=== PATIENT | female | born 1995 | race African-American/Black ===

== ENCOUNTER 2018-08-19 20:24 | Emergency (ER) | payer SELFPAY ==
--- NOTE | 2018-08-19 21:39 | ULT ---
PELVIC ULTRASOUND: 08/19/18 HISTORY: Abdominal pain, rule out ectopic. Real time imaging of the pelvis shows a single viable intrauterine . heart rate is 171 beats per minute. The crown to rump length measurements are 1.4 cm corresponding to 7 weeks, 5 days. No subchorionic bleed is seen. The right and left ovaries are normal in size and appearance. DOPPLER EVALUATION WITH SPECTRAL ANALYSIS: Normal flow is shown to both ovaries. IMPRESSION: Single viable intrauterine . [place] to rump length measurements corresponding to a gestationa l age of 7 weeks, 6 days. Estimated date of delivery 04/01/19. POS: [facility]
== END 2018-08-19 21:50 | disposition home or self-care (01) ==
LOC: ERS 20:24
DX: O99.281 Endocrine, nutritional and metabolic diseases complicating pregnancy, first trimester (principal); O21.9 Vomiting of pregnancy, unspecified; E05.90 Thyrotoxicosis, unspecified without thyrotoxic crisis or storm; O99.89 Other specified diseases and conditions complicating pregnancy, childbirth and the puerperium; Z3A.01 Less than 8 weeks gestation of pregnancy
CPT/HCPCS: 76856

== ENCOUNTER 2019-03-04 03:25 | Day surgery (SDC) | payer OTHER ==
[2019-03-04] MEDS ORDERED: Ondansetron ODT 8 MG TAB ONE (05:38)
--- NOTE | 2019-03-04 07:16 | PDOC.FPROB ---
Addendum entered and electronically signed by Ceci Tapia MD 03/04/19 16:33 : Patient's mother called saying [facility] did not approve zofran but they had already left town. [facility] electronic rx to [facility]. Addendum entered and electronically signed by Ceci Tapia MD 03/04/19 16:29 : Course of care: Patient received 4L of fluids, FHT showed improvement in baseline two 150s, mod variability, accels. Patient with improved urine output light to clear in color. AVSS. Able to tolerate PO liquids and some food. Had U/S performed since patient was scheduled for this on Tuesday and lives out of town. US showed ZACH 9.5cm, live IUP, cephalic. Will send rx for zofran to [facility] since [facility] will not accept [facility]. Advised to follow up with Dr. Soto this week. Original Note: [facility] OB H&P: A/P - Problem List (1) Status: Acute Discussion: Date/Time: 03/04/19715 PCP: Charles HPI: This is a 23 yo at 36.5 wks presenting for intractable N/V. She states the onset was sudden last night, she thinks she vomited 15 times. Denies blood in vomit. States she has a nephew that lives with her that had the same symptoms one day ago. Denies fevers. Patient had abdominal pain when she first came in but that is now improved after receiving 4mg of Zofran and 1L NS in the ED. Patient states she has not been able to eat or drink anything in the ED. She affirms movement, denies cxns, ROM, bleeding/discharge. Denies visual changes, SOB, or swelling. History: OB hx: G1, denies any complications PMH: neg PSH: neg Meds: PNV All: NKDA Soc Hx: denies smoking, alcohol, drugs Fam Hx: denies downs, congenital defects REVIEW OF SYSTEMS: Gen: no fever, chills, or sweats Neuro: no numbness/tingling, no weakness, + mild headache ENT: denies congestion Eyes: no visual changes Resp: no cough, no SOB, no wheeze Card: denies chest pain, no palpitations GI: see hpi : no dysuria, no hematuria Skin: no rash, no erythema Vitals: T: 98.3 R: 18 BP: 98/57 P:80 Sat: 98% on RA Wt: 95kg PHYSICAL EXAMINATION: General: NAD, alert and oriented x3 HEENT: EOMI, normal sclera Neck: Supple. Full ROM. Heart/Cardiovascular System: RRR, Cap refill < 3 seconds, no rub, no murmur Lungs/Respiratory System: clear to auscultation bilaterally. No increased work of breathing. Room air. Abdomen/Gastro-Intestinal System: no abdominal tenderness, normal bowel sounds, Gravid Extremities: Warm extremities. No cyanosis or edema. Neuro: No gross deficits appreciated Psychiatry: Awake, Alert and cooperative with exam Skin: No lesions, rashes Musculoskeletal: Full ROM A/P: This is a 23 yo at 36.5 wks presenting for intractable N/V FHT: baseline 170, good variability, accels present, no decels [place]: no cxns # Intractable N/V - had only received 500ml fluids at time of exam in ED, ordered 2L total - Vital signs stable - ordered cbc, cmp - will have patient transferred to L&D triage for monitoring of tachycardia # tachycardia - baseline 170 - suspect this is 2/2 maternal viral infection, dehydration - will continue rehydration and monitor - consider admission if mother is unable to tolerate PO intake Addendum - Attending - Attending Attestation Date/Time: 03/05/19 [id number] I personally evaluated the patient and discussed the management with Dr. Lamb I agree with the History, Examination, Assessment and Plan documented above with any addition or exceptions noted below. vital signs reviewed and normal. Pt vomiting resolved and pt hydrated after 4L iv fluid.
[2019-03-04 07:23] LABS: #Lymphocytes 0.2 thou/uL (1.20-3.40); #Monocytes 0.2 thou/uL (0.11-0.59); #Neutrophils 7.1 thou/uL (1.40-6.50); %Eosinophils 0.2 % (0.0-10.0); %Lymphocytes 2.3 % (21.0-51.0); %Monocytes 3.2 % (0.0-10.0); %Neutrophils 94.3 % (42.0-75.0); Hemoglobin 10.6 g/dL (12.0-16.0); Mean Corpuscular HGB CONC 32.8 g/dL (32.0-36.0); Mean Corpuscular Hemoglobin 25.6 pg (27.0-31.0); Mean Corpuscular Volume 77.9 fL (78.0-98.0); Mean Platelet Volume 8.8 fL (7.4-10.4); Platelet Count 177 thou/uL (130-400); RBC Distribution Width 12.7 % (11.5-14.5); Red Blood Cell (RBC) Count 4.15 mill/uL (4.20-5.40); White Blood Cell (WBC) Count 7.5 thou/uL (4.8-10.8)
[2019-03-04 07:35] LABS: ALT (SGPT) 12 U/L (8-55); AST (SGOT) 16 U/L (5-34); Albumin 3.4 g/dL (3.5-5.0); Alkaline Phosphatase 88 U/L (40-150); Anion Gap 11 mmol/L (10-20); BUN (Urea Nitrogen) 9 mg/dL (7.0-18.7); Bilirubin, Total 0.7 mg/dL (0.2-1.2); Calc. Creatinine Clearance 0 mL/min (70-130); Calcium 8.5 mg/dL (7.8-10.44); Carbon Dioxide 21 mmol/L (22-29); Chloride 107 mmol/L (98-107); Estimated GFR-MDRD Greater than 90; Globulin 2.8 g/dL (2.4-3.5); Glucose 89 mg/dL (70-105); Potassium 4.1 mmol/L (3.5-5.1); Protein, Total 6.2 g/dL (6.0-8.3); Sodium 135 mmol/L (136-145)
[2019-03-04] MEDS ORDERED: Lactated Ringer's 1,000 ML IV SCH (09:00)
[2019-03-04 09:36] VITALS: BMI 31.6
--- NOTE | 2019-03-04 15:25 | ULT ---
ULTRASOUND OBSTETRICAL COMPLETE: DATE: 03/04/2019 HISTORY: 23-year-old female in third trimester . Follow-up. COMPARISON: None except for first trimester ultrasound on 08/19/2018 FINDINGS: number: wilhelm lie: Vertex Maternal cervix: Obscured Placenta: Anterior. No placenta previa. Amniotic fluid volume: ZACH = 9.5cm heart rate: 173 bpm anatomy not evaluated. biometry: Biparietal diameter (BPD): 8.2 cm 33 w 0 d Head circumference (HC): 31.8 cm 35 w 6 d Abdominal circumference (AC): 31.1 cm 35 w 0 d Femur length (FL): 6.9 cm 35 w 1 d Average ultrasound age (AUA): 34 w 5 d Estimated date of delivery (GAVI): 04/10/2019 Estimated weight (EFW): 2554 g +/- 378 g IMPRESSION: 1) Live 3rd trimester intrauterine gestation. 2) Estimated gestational age of 34 weeks, 5 days 3) cephalic lie.
== END 2019-03-04 15:55 | disposition home health service (06) ==
LOC: ERS 03:25 → L&D/OP 08:42
PROVIDERS: ATTEND Obstetrics & Gynecology
DX: O21.2 Late vomiting of pregnancy (principal); O36.8330 Maternal care for abnormalities of the fetal heart rate or rhythm, third trimester, not applicable or unspecified; O99.283 Endocrine, nutritional and metabolic diseases complicating pregnancy, third trimester; E05.90 Thyrotoxicosis, unspecified without thyrotoxic crisis or storm; Z3A.36 36 weeks gestation of pregnancy; Z88.0 Allergy status to penicillin
CPT/HCPCS: 36415; 76816; 80053; 85025; 96360; 96361; 99283

== ENCOUNTER 2019-03-23 06:08 | Inpatient (IN) | payer OTHER ==
[2019-03-23 06:50] VITALS: BMI 33.5
[2019-03-23] MEDS ORDERED: NS / Oxytocin 40 units/1000ml 1,000 ML ONE (07:48)
[2019-03-23] MEDS ORDERED: Lidocaine 1% (PF) 30 ML VIAL ONE (07:48)
[2019-03-23] MEDS ORDERED: Misoprostol 200 MCG TAB PR PRN (07:55)
[2019-03-23] MEDS ORDERED: Diphenoxylate HCl/Atropine Tablet PO PRN (07:55)
[2019-03-23] MEDS ORDERED: Ibuprofen 800 MG TAB PO PRN (07:55)
[2019-03-23] MEDS ORDERED: Butorphanol Tartrate 1 MG/ML VIAL SLOW IVP PRN (07:55)
[2019-03-23] MEDS ORDERED: Carboprost 250 MCG/ML AMP IM PRN (07:55)
[2019-03-23] MEDS ORDERED: NS / Oxytocin 40 units/1000ml 1,000 ML IV PRN (07:55)
[2019-03-23] MEDS ORDERED: Ondansetron PF 4 MG/2 ML Vial IVP PRN ×3 (07:55→14:30)
[2019-03-23] MEDS ORDERED: Promethazine HCl 25 MG/ML VIAL IM PRN ×3 (07:55→14:30)
[2019-03-23] MEDS ORDERED: Methylergonovine 0.2 MG/ML VIAL IM PRN (07:55)
[2019-03-23] MEDS ORDERED: Lidocaine 1% (PF) 30 ML VIAL SC PRN (07:55)
[2019-03-23] MEDS ORDERED: hydrALAZINE 20 MG/ML VIAL SLOW IVP PRN ×2 (07:55→14:30)
[2019-03-23] MEDS ORDERED: HYDROcodone/Acetaminophen 5/325 mg Tablet PO PRN ×3 (07:55→14:30)
[2019-03-23] MEDS ORDERED: Lactated Ringer's 1,000 ML IV SCH (08:00)
[2019-03-23] MEDS ORDERED: NS w/ Oxytocin 10 units 500 ML IV SCH ×2 (08:00)
[2019-03-23 08:11] LABS: Hemoglobin 11.3 g/dL (12.0-16.0); Mean Corpuscular HGB CONC 33.7 g/dL (32.0-36.0); Mean Corpuscular Hemoglobin 25.8 pg (27.0-31.0); Mean Corpuscular Volume 76.4 fL (78.0-98.0); Mean Platelet Volume 9.3 fL (7.4-10.4); Platelet Count 198 thou/uL (130-400); RBC Distribution Width 13.2 % (11.5-14.5); Red Blood Cell (RBC) Count 4.39 mill/uL (4.20-5.40)
[2019-03-23 08:50] LABS: HBSAg Index 0.33 S/CO (0-0.99); Hep B Surf Ag Non-Reactive S/CO (NonReactive); Syphilis Antibody Nonreactive (Nonreactive); Syphilis Antibody Index 0.03 S/CO (<1.00 Non-Reactive)
[2019-03-23] MEDS ORDERED: Bupivacaine 0.25% HCL 30 ML VIAL ONE (09:00)
[2019-03-23] MEDS ORDERED: Fentanyl 4 mcg/Bup 0.1% Cadd 100 ML ONE (09:06)
[2019-03-23] MEDS ORDERED: Lactated Ringer's 500 ML IV PRN (10:37)
[2019-03-23] MEDS ORDERED: diphenhydrAMINE 50 MG/ML VIAL IVP PRN (10:37)
[2019-03-23] MEDS ORDERED: Acetaminophen 325 MG TAB PO PRN (10:37)
[2019-03-23] MEDS ORDERED: ePHEDrine/0.9% NaCl/PF SYRINGE 50 mg/10 ml SLOW IVP PRN (10:37)
[2019-03-23] MEDS ORDERED: Naloxone HCl 0.4 mg/ml Vial IVP PRN ×2 (10:37)
[2019-03-23] MEDS ORDERED: Communication Order-Pharmacy FS SCH (10:45)
[2019-03-23] MEDS ORDERED: Fentanyl 4 mcg/Bupivacaine 0.1% Cassette 100 ML EPIDURAL SCH (10:45)
[2019-03-23] MEDS ORDERED: Adacel (T-DAP) 0.5 ML SYRINGE IM ONE (14:30)
[2019-03-23] MEDS ORDERED: Benzocaine-Menthol 82.5 ML CAN TOP PRN (14:30)
[2019-03-23] MEDS ORDERED: Bisacodyl 10 MG SUPP PR PRN (14:30)
[2019-03-23] MEDS ORDERED: Milk Of Magnesia 30 ML UDCUP PO PRN (14:30)
[2019-03-23] MEDS ORDERED: NS / Oxytocin 40 units/1000ml 1,000 ML IV SCH (14:30)
[2019-03-23] MEDS ORDERED: diphenhydrAMINE 25 MG CAP PO PRN (14:30)
[2019-03-23] MEDS ORDERED: Sodium Chloride 0.9% 10 ML ONE (17:44)
[2019-03-23] MEDS: Ferrous Sulfate 325 MG TAB PO SCH (18:33)
[2019-03-23] MEDS: Ibuprofen 800 MG TAB PO SCH ×2 (19:48→21:49)
[2019-03-23] MEDS: Docusate Calcium (SURFAK) 240 MG CAP PO SCH (21:49)
[2019-03-24] MEDS: Ibuprofen 800 MG TAB PO SCH ×3 (06:20→21:51)
[2019-03-24] MEDS: Prenatal Vitamin 1 TAB PO SCH (08:22)
[2019-03-24] MEDS: Docusate Calcium (SURFAK) 240 MG CAP PO SCH ×2 (08:22→21:51)
[2019-03-24] MEDS: Ferrous Sulfate 325 MG TAB PO SCH ×2 (08:23→16:50)
[2019-03-24 09:07] LABS: Hemoglobin 10.6 g/dL (12.0-16.0); Mean Corpuscular HGB CONC 33.8 g/dL (32.0-36.0); Mean Corpuscular Hemoglobin 26.1 pg (27.0-31.0); Mean Corpuscular Volume 77.2 fL (78.0-98.0); Mean Platelet Volume 9.3 fL (7.4-10.4); Platelet Count 187 thou/uL (130-400); RBC Distribution Width 13.4 % (11.5-14.5); Red Blood Cell (RBC) Count 4.05 mill/uL (4.20-5.40); White Blood Cell (WBC) Count 8.2 thou/uL (4.8-10.8)
[2019-03-25] MEDS: Ibuprofen 800 MG TAB PO SCH (06:12)
[2019-03-25 08:45] VITALS: BP 118/70; TEMP 98.2
[2019-03-25] MEDS: Ferrous Sulfate 325 MG TAB PO SCH (08:47)
[2019-03-25] MEDS: Prenatal Vitamin 1 TAB PO SCH (12:30)
[2019-03-25] MEDS: Docusate Calcium (SURFAK) 240 MG CAP PO SCH (12:30)
== END 2019-03-25 18:35 | disposition home or self-care (01) | DRG 807 ==
LOC: L&D/OP 06:08 → L&D 06:46 → 3SE 14:25
PROVIDERS: ADMIT Family Medicine; ATTEND Family Medicine
PROC: 10907ZC Drainage of Amniotic Fluid, Therapeutic from Products of Conception, Via Natural or Artificial Opening (ICD-10-PCS; principal; 2019-03-23)
PROC: 10E0XZZ Delivery of Products of Conception, External Approach (ICD-10-PCS; 2019-03-23)
PROC: 0HQ9XZZ Repair Perineum Skin, External Approach (ICD-10-PCS; 2019-03-23)
DX: O99.284 Endocrine, nutritional and metabolic diseases complicating childbirth (principal); Z37.0 Single live birth; E03.9 Hypothyroidism, unspecified; O70.0 First degree perineal laceration during delivery; Z3A.39 39 weeks gestation of pregnancy
CPT/HCPCS: 36415; 51701; 85027; 86780; 86850; 86900; 86901; 87340; 99285; J2001; S0020